=== PATIENT | male | born 1985 | race Hispanic/Latino ===

== ENCOUNTER 2017-12-27 11:03 | Outpatient (CLI) | payer BC ==
--- NOTE | 2017-12-27 12:26 | RAD ---
RIGHT SMALL DIGIT THREE VIEWS: Date: 12-27-17 Provided Clinical History: Right fifth digit pain. FINDINGS: There is flexion at the small digit DIP joint. Alignment appears otherwise anatomic. Joint spaces adam ear preserved. There is no evidence for fracture. IMPRESSION: The small digit DIP joint is held in flexion. There is no evidence for fracture. POS: [facility]
== END 2017-12-27 11:04 | disposition home or self-care (01) ==
LOC: BICRAD 11:03
PROVIDERS: ATTEND Specialist
DX: S62.636A Displaced fracture of distal phalanx of right little finger, initial encounter for closed fracture (principal)

== ENCOUNTER 2019-02-05 10:28 | Outpatient (CLI) | payer BC ==
--- NOTE | 2019-02-05 12:33 | RAD ---
LEFT SHOULDER 3 VIEWS: Date: 02/05/19 HISTORY: Left shoulder pain. FINDINGS: No signs of fracture or dislocation. Some slightly indistinct appearance to the AC joint cortex. This is probably still within normal limits related to technique. The possibility of some early osteolysi s change not excluded. IMPRESSION: Slightly indistinct margins of the cortex of the distal clavicle and acromion. Some of this is probab ly just related to technique. Clinical correlation as to whether the patient has AC joint pain. POS: [facility]
== END 2019-02-05 10:29 | disposition home or self-care (01) ==
LOC: BICRAD 10:28
PROVIDERS: ATTEND Specialist
DX: M25.512 Pain in left shoulder (principal)

== ENCOUNTER 2020-05-22 10:34 | Outpatient (CLI) | payer BC | END 2020-05-22 10:35 | disposition home or self-care (01) | LOC: BICRAD 10:34 | PROVIDERS: ATTEND Specialist | DX: M79.631 Pain in right forearm (principal) ==

== ENCOUNTER 2024-04-19 08:39 | Outpatient (CLI) | payer BC | END 2024-04-19 08:40 | disposition home or self-care (01) | LOC: BICMRI 08:39 | PROVIDERS: ATTEND Specialist | DX: M25.511 Pain in right shoulder (principal); M25.512 Pain in left shoulder; M19.011 Primary osteoarthritis, right shoulder; R60.0 Localized edema; S43.431A Superior glenoid labrum lesion of right shoulder, initial encounter; M19.012 Primary osteoarthritis, left shoulder ==